=== PATIENT | female | born 1995 | race African-American/Black ===

== ENCOUNTER 2019-10-08 12:23 | Outpatient (CLI) | payer BC, SELFPAY ==
--- NOTE | ~2019-10-08 | US_ITS ---
EXAMINATION: US breast RT limited HISTORY: Palpable abnormality of the lower inner quadrant of the breast TECHNIQUE: Limited right breast ultrasound is performed. FINDINGS: There is no evidence of focal abnormal cystic or solid mass in the vicinity of the reported palpable abnormality of concern. IMPRESSION: No specific sonographic correlate is identified for the reported palpable abnormality of concern. Fur ther evaluation at this time should be based on clinical assessment. Continued follow-up physical exa mination is recommended. BI-RADS Category 1: Negative Reviewed, dictated and finalized at location A. IMPRESSION: No specific sonographic correlate is identified for the reported palpable abnor mality of concern. Further evaluation at this time should be based on clinical assessment. Continued follow-up physical examination is recommended. BI-RADS Category 1: Negative
== END 2019-10-08 12:24 | disposition home or self-care (01) ==
PROVIDERS: PCP Emergency Medicine; Visit Provider Advanced Practice Midwife
DX: N63.10 Unspecified lump in the right breast, unspecified quadrant (principal)
CPT/HCPCS: 76642

== ENCOUNTER 2020-09-16 10:50 | Outpatient (CLI) | payer BC, SELFPAY ==
--- NOTE | ~2020-09-16 | US_ITS ---
US soft tissue abdomen 09/16/2020 11:09 Indication: Evaluate for hernia. Palpable abdominal abnormality. Procedure: High-resolution Limited ultrasound of the anterior abdominal wall in the area of palpable concern Comparison: No prior studies for comparison. Findings: There is discontinuity of the anterior abdominal wall musculature with intrusion of irregul ar hypoechoic soft tissue. No definite bowel intrusion. This likely represents a abdominal wall herni a measuring 1.4 x 1.1 cm. This area of abnormality is just superior to the umbilicus. Impression: 1: Discontinuity of the anterior abdominal wall musculature just above the umbilicus, consistent with ventral hernia. No definite bowel intrusion. Consider correlation with CT for further assessment. Reviewed, dictated and finalized at location A. Impression: 1: Discontinuity of the anterior abdominal wall musculature just above the umbi licus, consistent with ventral hernia. No definite bowel intrusion. Consider co rrelation with CT for further assessment.
== END 2020-09-16 10:51 ==
PROVIDERS: PCP Emergency Medicine; Visit Provider Emergency Medicine
DX: K43.9 Ventral hernia without obstruction or gangrene (principal)
CPT/HCPCS: 76705

== ENCOUNTER 2020-11-07 09:50 | Emergency (ER) | payer BC, SELFPAY ==
[2020-11-07 09:59] VITALS: BP 120/75; PULSE 77; RESP 16; TEMP 36.6; O2SAT 100
--- NOTE | 2020-11-07 10:28 | ED.EYEPROB ---
HPI - Eye Problem General Chief complaint: Eye Problems Stated complaint: PINK EYE -LEFT Time Seen by Provider: 11/07/20 10:04 Source: patient and RN notes reviewed Mode of arrival: ambulatory Limitations: no limitations History of Present Illness HPI Narrative: Patient presents today complaining of left eye redness, crusting with watery drainage and itchiness. Symptoms began yesterday with matting that started this morning. Patient used some Visine this morning at 5 AM to help with the redness, but she still reports some itching. States symptoms may be beginning in the right night as well. Patient also reports vomiting and diarrhea that began yesterday. States that she vomited 3 times yesterday, last at 2 AM. She has not attempted to drink anything since her last episode of vomiting. Denies abdominal pain, fever MD chief complaint: eye redness Related Data Home Medications Medication Instructions Recorded Confirmed valacyclovir 500 mg PO DAILY 05/21/19 05/21/19 ascorbate calcium (vitamin C) 500 500 mg PO BID 07/31/20 mg tablet cyanocobalamin (vitamin B-12) 500 mcg INTRANASAL 07/31/20 mcg/spray nasal spray ferrous sulfate [Children's Iron] PO 07/31/20 multivitamin 2 tablet PO DAILY tablet 07/31/20 Allergies Allergy/AdvReac Type Severity Reaction Status Date / Time Penicillins Allergy Severe HIVES/RASH Verified 07/31/20 10:14 Review of Systems Review of Systems: Narrative: CONSTITUTIONAL: Denies body aches, fever, chills, or sweats. EYES: Denies visual changes, redness, or discharge. ENT: Denies rhinorrhea, congestion, sore throat, or otalgia. CARDIOVASCULAR: Denies chest pain, palpitations, or edema. RESPIRATORY: Denies cough or dyspnea. GASTROINTESTINAL: Denies abdominal pain, nausea. + Vomiting and diarrhea GENITOURINARY: Denies dysuria or hematuria. SKIN: Denies rash, itching, or wounds. MUSCULOSKELETAL: Denies back pain, joint pain, or myalgia. NEUROLOGIC: Denies headache, numbness, tingling, or weakness. PSYCH: Denies depression or anxiety. 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 Please see nursing chart for further information. There is no relevant family history pertinent to the presenting complaint Exam Narrative: Exam Narrative: GENERAL: Well-appearing, well-nourished, and in no acute distress. HEAD: Normocephalic, atraumatic. EYES: EOMI. PERRL. No matting noted bilaterally. Mild chemosis bilaterally. Slightly injected conjunctiva on the left. Left upper eyelid mildly edematous. Lashes normal bilaterally. ENT: Mucous membranes pink and moist. NECK: Normal AROM. Supple. No lymphadenopathy. CHEST: No respiratory distress. Clear to auscultation. HEART: Regular rate and rhythm. No murmur appreciated. Normal peripheral pulses. ABDOMEN: Soft, nontender, nondistended, normal active bowel sounds. MUSCULOSKELETAL: No bony tenderness. EXTREMITIES: Normal range of motion. No edema. SKIN: Warm, dry, no rash. Capillary refill normal. Normal skin turgor. NEURO: No focal deficits. Alert and oriented x3. Gait steady. PSYCH: Normal affect. No signs of depression or anxiety. Course Course Emergency Course: Will p.o. challenge patient. Vital Signs Vital signs: Vital Signs Temperature 97.9 F
--- NOTE | 2020-11-07 10:35 | PC.NURSE ---
1030- po hydration given. will recheck.
== END 2020-11-07 10:45 | disposition home or self-care (01) ==
PROVIDERS: Emergency Provider Nurse Practitioner; PCP Emergency Medicine
DX: H10.12 Acute atopic conjunctivitis, left eye (principal); Z87.891 Personal history of nicotine dependence; Z98.84 Bariatric surgery status
CPT/HCPCS: 99213; G0463